=== PATIENT | female | born 1980 | race Caucasian/White ===

== ENCOUNTER 2017-12-03 09:00 | Day surgery (SDC) | payer OTHER ==
[~2017-12-03] VITALS: Ht 172.7 cm; Wt 77.1 kg
[~2017-12-03 09:00] MED LIST: AMOXICILLIN500 MG PO; AURALGAN EAR DR14 ML OT; BUSPIRONE HCL10 MG PO; CEFTIN500 MG PO; CORTISPORIN EAR10 M1 AD; FERROUS SULFAT325 MG PO; IBUPROFEN600 MG PO; KEFLEX500 MG PO; LEXAPRO10 MG PO; NORCO 5-325 TA1 EACH PO; PERCOCET 5-3251 EACH PO; PROMETHAZINE HC25 M1 PO; PYRIDIUM200 MG PO; TYLENOL325 MG PO; VITAFOL-OB+DHA1 EACH PO; ZOFRAN ODT4 MG SL; ZOFRAN4 MG PO; ZOLOFT50 MG PO
--- NOTE | 2017-12-03 11:51 | NUR ---
12/03/17 1151 Rylee Batista 1142-PATIENT ARRIVED TO PACU ON 10L MASK O2 SAT 100% PATIENT WEANED TO 6L O2 SAT 100% NONAROUSABLE ORAL AIRWAY IN PLACE. DRESSING CDI ICE APPLIED. RR EVEN 1148-PATIENT OPENING EYES SITTING UP ORAL AIRWAY REMOVED. ARMS TIGHT AND BENT AT ELBOW. 6L MASK 100%
[2017-12-03] MEDS ORDERED: PERCOCET 5-3251 EACH PO (14:28)
[2017-12-03] MEDS ORDERED: ZOFRAN4 MG PO (14:29)
[2017-12-03] MEDS ORDERED: PROMETHAZINE HC25 M1 PO (14:29)
--- NOTE | 2017-12-03 15:27 | NUR ---
1245: PATIENT BACK IN DAY SURGERY ROOM FROM PACU. PATIENT SLIGHTLY DROWSY. AWAKENS EASILY. C/O PAIN 04/22. ABDOMINAL DRESSING CDI. IV SITE WNL. SCDs ON. CALL LIGHT WITHIN REACH. GOES BACK TO SLEEP WHEN NOT DISTURBED. 1325: PATIENT MEDICATED FOR PAIN. AND SON IN ROOM. GIVEN SOUP AND CRACKERS PER REQUEST. 1400: PATIENT TOLERATED SOUP, CRACKERS, AND WATER. VS CHECKED. PATIENT ASSISTED OOB AND TO BATHROOM. VOID WITHOUT DIFFICULTY. GAIT STEADY BACK TO ROOM. PATIENT TO START GETTING DRESSED TO GO HOME. 1445: IV DC'D WNL. TIP INTACT. DRESSING APPLIED. DISCHARGE INSTRUCTIONS GIVEN TO PATIENT AND . PATIENT DECLINED WHEELCHAIR. STATES LESS PAINFUL TO WALK THAN TO SIT DOWN AND HAVE TO GET BACK UP AGAIN. RN WALKED WITH PATIENT OUT TO CAR WITH .
--- NOTE | 2017-12-15 07:54 | OR ---
[facility] [address] [place], [place] [address] Signed DATE OF OPERATION: 12/03/2017 SURGEON: Delfino Blackwell MD PREOPERATIVE DIAGNOSIS: Incarcerated laparoscopic periumbilical incisional hernia. POSTOPERATIVE DIAGNOSES: 1. Incarcerated umbilical hernia (15 mm). 2. Incarcerated supraumbilical trocar site incisional hernia (15 mm). PROCEDURE: Primary umbilical and incisional herniorrhaphy with intraabdominal Ventrio mesh (11 x 14 cm). ESTIMATED BLOOD LOSS: None. INDICATIONS: Cynthia is a 37-year-old female who was asked to see me for hernia at the umbilicus. She has had a previous laparoscopic cholecystectomy as well as a laparoscopic tubal ligation and a laparoscopic reversal of her tubal ligation. She said the last 6 weeks before the office visit, she was having a lot of pain at the base of the umbilicus. She said it is always about a 6/10, but it jumps to a 10/10 when she is lifting the children with her youngest being 2 years old. She told me getting him in and out of the crib and bathtubs have been quite challenging. 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 She said that has been miserable trying to rotate patients out of bed and so forth. She also travels down to [place] twice a month and she said by the time she gets out of the car, her umbilicus is quite painful. She said it is affecting her daily life and her ability to work and take care of her children. Consequently, she went to her primary care provider. An ultrasound showed what appeared to be a fat containing hernia at the base of the umbilicus. It was not reducible. She was then asked to see me as a general surgeon. In the office, I gave her a pamphlet on hernias and we looked at that together. She understands the difference between the primary suture repair and a mesh repair. She also understands the expected intraop and postop course. I explained to her she may actually have more than one hernia. These hernias almost always contain omentum. Will be using intraabdominal mesh to reinforce the repair. She understands there is risk including, but not limited to bleeding, infection, scarring, change in contour of the skin, damage to bowel infection of mesh requiring removal, recurrent hernias, and chronic pain. She had expressed understanding and wished to proceed. Electronically Signed By: DELFINO BLACKWELL MD 12/15/17 0754 PATIENT NAME: CYNTHIA VANESSA OPERATIVE REPORT DATE OF : 84 REPORT #: [id number] PHYSICIAN: DELFINO BLACKWELL MD PCP: KIRTI HANSON REPORT IS CONFIDENTIAL AND NOT TO BE RELEASED WITHOUT AUTHORIZATION [facility] [address] [place] [id number] Signed PROCEDURE NOTE: I met with Cynthia and her in our preop area. We identified the hernia at the umbilicus and we marked that appropriately. After this, Cynthia was taken into the operating room and placed in the supine position under general endotracheal tube anesthesia. She was given preoperative antibiotics along with subcutaneous heparin. SCDs were utilized. She was then prepped and draped in the usual sterile fashion. We extended the vertical supraumbilical midline incision. We brought that around the right side of the umbilicus and down slightly below the umbilicus itself. We went down through the tissue bluntly with the help of the cautery. Sure enough, she did have some scar tissue and we found that indeed she had incarcerated umbilical hernia, probably 15 mm in diameter and then just above the umbilicus, she had a laparoscopic trocar site incisional hernia also just about 12-15 mm in diameter. There was just a thin bridge of fascia in between them, may be 3 or 4 mm at most. Consequently, we divided that fascial bridge to make one fascial defect. We took down all the omentum and placed it back inside the abdomen. We then chose our 11 x 14 cm oval-shaped Ventrio mesh and we placed that in the abdominal cavity transversely, so the long axis of the mesh is directly underneath the midportion of the umbilicus. We then brought the fascia together transversely with a running #1 Prolene suture. Several passes of the suture went through the top layer of the mesh to help hold it in place and keep it centered. After this, local anesthetic was copiously injected into the abdominal wall as well as the subcutaneous tissues. The wound was irrigated and suctioned out until clear. The umbilical skin was brought down to the fascia with an interrupted 2-0 PDS suture. The dermis was reapproximated with interrupted 3-0 subcuticular Monocryl sutures. The skin edges were reapproximated with a running 6-0 fast absorbing plain gut suture. Dry gauze and tape were then applied. Cynthia was awakened from anesthesia, extubated in the OR, and taken to recovery room in stable condition. Delfino Blackwell MD ALB/MODL /[id number] cc: ELLEN Cunha MD Electronically Signed By: DELFINO BLACKWELL MD 12/15/17 0754 PATIENT NAME: CYNTHIA VANESSA OPERATIVE REPORT DATE OF : 84 REPORT #: [id number] PHYSICIAN: DELFINO BLACKWELL MD PCP: KIRTI HANSON REPORT IS CONFIDENTIAL AND NOT TO BE RELEASED WITHOUT AUTHORIZATION [address] [address] Signed Baylee Morejon MD Copies: KIRTI HNASON ANDREW L MD WINN, PATRICIA J MD ~ Electronically Signed By: DELFINO BLACKWELL MD 12/15/17 0754 PATIENT NAME: CYNTHIA VANESSA OPERATIVE REPORT DATE OF : 84 REPORT #: [id number] PHYSICIAN: DELFINO BLACKWELL MD PCP: KIRTI HANSON REPORT IS CONFIDENTIAL AND NOT TO BE RELEASED WITHOUT AUTHORIZATION
== END 2017-12-03 14:45 | disposition home or self-care (01) ==
LOC: DS 09:00
PROVIDERS: Colon & Rectal Surgery
PROC: 0WUF0JZ Supplement Abdominal Wall with Synthetic Substitute, Open Approach (ICD-10-PCS; principal; 2017-12-03 10:15)
DX: K43.0 Incisional hernia with obstruction, without gangrene (principal); K42.0 Umbilical hernia with obstruction, without gangrene; K21.9 Gastro-esophageal reflux disease without esophagitis; F41.9 Anxiety disorder, unspecified; G89.29 Other chronic pain; R11.0 Nausea; Z98.890 Other specified postprocedural states; Z90.49 Acquired absence of other specified parts of digestive tract; Z98.51 Tubal ligation status; Z87.891 Personal history of nicotine dependence; Z88.5 Allergy status to narcotic agent; Z88.1 Allergy status to other antibiotic agents; Z88.8 Allergy status to other drugs, medicaments and biological substances
CPT/HCPCS: 00750; C1781; J0330; J0690; J1100; J1170; J1644; J1885; J2250; J2405; J2704; J2710; J2765; J3010; J7120